=== PATIENT | male | born 1990 | race Caucasian/White ===

== ENCOUNTER 2023-09-18 18:51 | Emergency (ER) | payer BC, SELFPAY ==
[2023-09-18 19:04] VITALS: BP 127/81; RESP 16; TEMP 37.1; O2SAT 97; BMI 44.9
--- NOTE | 2023-09-18 19:36 | ED_ITS ---
HPI - General Adult General Chief complaint: Ear/Nose/Throat Problem Stated complaint: fever, sore throat, Time Seen by Provider: 09/18/23 19:30 History of Present Illness HPI narrative: This 32-year-old male comes in reporting sore throat, fever, and generalized aches and pains that began yesterday. He does not report any cough or nasal congestion. He arrives here with normal vital signs. Related Data Previous Rx's Medication Instructions Recorded acetaminophen 300 mg-codeine 30 mg 1 tab PO Q6H PRN pain #15 tabs 09/18/23 tablet Allergies Allergy/AdvReac Type Severity Reaction Status Date / Time Penicillins AdvReac Severe Anaphylaxis Verified 09/18/23 19:08 contrast dye AdvReac Severe Rash Uncoded 09/18/23 19:08 Review of Systems Status of ROS: Reports: 10 or more systems reviewed and unremarkable except as noted in History and below Narrative: Constitutional: No weight gain or loss. He reports fevers. Eyes: No discharge. No vision changes. HENT: No congestion, no ear pain. He reports a sore throat. Cardiovascular: No chest pain, no palpitations. Respiratory: No shortness of breath, no wheezes, no cough. Gastrointestinal: No abdominal pain, no vomiting, no diarrhea. Genitourinary: No dysuria, no hematuria. Musculoskeletal: Normal range of motion. Skin: No rashes, no pruritis. Neurological: No dizziness, weakness, sensory change, speech change. Endo/Heme/Allergies: No bruising or bleeding. No polydipsia. Pysch: no suicidality, no anxiety, no insomnia. All other systems reviewed and are negative. Exam Narrative: Exam Narrative: Constitutional: Well-developed, well-nourished, no acute distress. HEENT: Normocephalic, atraumatic. Oropharynx has erythema with small amount of exudate. Neck: Normal range of motion. Nontender. Supple. Heart: Regular. No murmurs. Normal rate. Intact distal pulses. Lungs: Clear to auscultation. No chest discomfort. No wheezes, rhonchi, or rales. Abdomen: Normal bowel sounds. Nontender. No rebound tenderness. Genitalia: Deferred. Back: No midline tenderness. Normal range of motion. Extremities: Normal range of motion. No injury. Skin: Intact. No rash. Warm. No erythema or pallor. Neurologic: No altered sensation. No weakness. Alert and oriented. Psychiatric: No suicidality. No anxiety or depression. No insomnia. Nursing notes and vitals signs are reviewed. Const: Vital Signs, click to edit/add: Vital Signs - 24 hr 09/18/23 19:04 Temperature 98.7 F Respiratory Rate 16 Blood Pressure [Le ft Upper Arm] 127/81 Pulse Oximetry 97 Oxygen Delivery Me thod Room Air Course Vital Signs Vital signs: Initial Vital Signs Temperature 98.7 F 09/18/23 19:04 Temperature Source Temporal Artery Scan 09/18/23 19:04 Respiratory Rate 16 09/18/23 19:04 Blood Pressure 127/81 09/18/23 19:04 Blood Pressure Mean 96 09/18/23 19:04 Blood Pressure Position Sitting 09/18/23 19:04 Pulse Oximetry 97 09/18/23 19:04 Oxygen Delivery Method Room Air 09/18/23 19:04 Vital Signs Temperature 98.7 F 09/18/23 19:04 Respiratory Rate 16 09/18/23 19:04 Blood Pressure 127/81 09/18/23 19:04 Pulse Oximetry 97 09/18/23 19:04 Oxygen Delivery Method Room Air 09/18/23 19:04 Temperature 98.7 F 09/18/23 19:04 Respiratory Rate 16 09/18/23 19:04 Blood Pressure 127/81 09/18/23 19:04 Pulse Oximetry 97 09/18/23 19:04 Oxygen Delivery Method Room Air 09/18/23 19:04 Medical Decision Making MDM Narrative Medical decision making narrative: This patient comes in reporting sore throat and fever that began yesterday. Nasal pharyngeal swab an oral swab are negative for COVID, influenza, RSV, and strep. This patient has normal vital signs on arrival here. He did receive an oral dose of dexamethasone 10 mg. He is okay to be discharged home. I advised him to return if becoming short of breath or worsening symptoms happen. He did receive a prescription for few tablets of Tylenol 3 for additional symptomatic relief. Lab Data Labs: Lab Results 09/18/23 Range/Units 19:10 SARS-CoV-2 (PCR) Negative SARS-CoV-2 (Negative) Influenza Type A (PCR) Negative PCR FLU A (Negative) Influenza Type B (PCR) Negative PCR FLU B (Negative) RSV (PCR) Negative PCR RSV (Negative) Group A Strep DNA NOT DETECTED (Not Detectd) Discharge Plan Discharge Clinical Impression: URI (upper respiratory infection) Patient Disposition: Home, Self-Care Condition: Stable Additional Instructions: Take medication as needed and indicated. Follow up with MD or return if worsening. Prescriptions: New acetaminophen-codeine 300-30 mg tablet 1 tab PO Q6H PRN (Reason: pain) Qty: 15 0RF Follow Up/Referrals: Fartun Melendez MD [Primary Care Provider] - Stand Alone Forms: [employer] Info Instructions
--- OUTSIDE RECORDS SUMMARY | 2023-09-18 19:48 | XMS_ITS | Clinical Summary ---
Author Name Unknown Organization [facility] Address [place], [place] [address] Care Team Providers Care Environmental Department Manager Name Role Phone Fartun Melendez MD Primary Care Provider Allergies Active Allergy Reactions Criticality Noted Date Comments Diatrizoate Allergen Hives 09/27/2020 Delayed response-- full body rash, may be due to IV contrast. Recommend premedication Penicillins Shortness Of Breath,Edema 05/18/2018 Medications Medication Sig Dispensed Refills Start Date End Date Status almotriptan (AXERT) 12.5 mg tabletIndications:Mi graine syndrome Take 1 tablet by mouth 2 times daily if needed for Migraine. Give at minimum 2hrs apart. Max Dose: 25mg per 24hrs. 9 tablet 1 10/17/2019 Active ammonium lactate 12% topical (LACHYDRIN) 12 % lotionIndications:Cr acked skin on feet Apply topically to affected area(s) 2 times daily. 1 Bottle 0 08/01/2020 Active benzonatate (Tessalon Perles) 100 mg capsuleIndications:I nfluenza-like illness,Cough, unspecified type Take 1 Capsule (100 mg) by mouth 3 times daily if needed for Cough. 30 Capsule 0 08/13/2022 Active albuterol HFA (ProAir HFA) 90 mcg/actuation inhalerIndications:I nfluenza-like illness,Cough, unspecified type Inhale 1-2 Puffs by mouth every 6 hours if needed for Shortness of Breath 1st choice. 1 Each 0 08/13/2022 Active Active Problems No known active problems Encounters Date Type Department Care Team Description 09/18/2023 Nurse Triage [facility] [address] [place] [address] Fartun Melendez MD Fever; Throat Pain/problem 07/29/2023 2:00 PM [facility] Procedure Only [facility] [address] [place] [address] Deedee Murillo MD Vasectomy 07/29/2023 Travel 07/01/2023 1:30 PM [facility] [facility] Office Visit [facility] [address] [place] [address] Deedee Murillo MD Consult (vasectomy) 07/01/2023 Travel from Last 3 Months Immunizations Name Administration Dates Next Due AMB Influenza, IIV4 PF (=>6 mos Flulaval,Fluzone Fluarix)(Flu Clinic Only) 05/16/2020,05/31/2019 Influenza, IIV4 05/18/2018 Tdap 05/18/2018 Family History Medical History Relation Name Comments Good Health Father Good Health Mother Diabetes Paternal Grandmother Cancer No Family History Heart Disease No Family History Relation Name Status Comments Father Alive Mother Alive Paternal Grandmother Social History Tobacco Use Types Packs/Day Years Used Date Smoking Tobacco: Never Smokeless Tobacco: Never Tobacco Cessation:Counseling Given: Yes Alcohol Use Standard Drinks/Week Comments Yes 0 (1 standard drink = 0.6 oz pur e alcohol) very rarely PHQ-2 Answer Date Recorded PHQ-2 TOTAL SCORE 0 08/01/2020 Social Connections Answer Date Recorded Frequency of Communication with Friends and Fami ly Not on file 08/04/2021 Financial Resource Strain Answer Date R ecorded Difficulty of Paying Living Expenses Not on file 08/04/2021 Difficulty of Paying Living Expenses Not on file 08/04/2021 Sex and Gender Information Value Date Recorded Sex Assigned at Not on file Gender Identity Not on file Sexual Orientation Not on file Obstetrics History Last Filed Vital Signs Vital Sign Reading Time Taken Comments Blood Pressure 132/78 07/29/2023 1:56 PM [employer] Pulse 72 07/29/2023 1:56 PM [employer] Temperature 36.8 ??C (98.3 ??F) 08/13/2022 2:43 PM CS T Respiratory Rate - - Oxygen Saturation 99% 07/29/2023 1:56 PM WO[employer]ER Inhaled Oxygen Concentration - - Weight 154 kg (339 lb 9.6 oz) 07/29/2023 1:56 PM WO[employer]ER with shoes Height 187.2 cm (6' 1.7) 08/01/2020 7:56 AM WOOL CLASSER Body Mass Index 43.96 08/01/2020 7:56 AM WOOL CLASSER Plan of Treatment Health Maintenance Due Date Last Done Comments COVID-19 vaccine series (#1) 05/20/1990 HIV for age 15-65 2004 Hepatitis C screening for ag e 18-79 11/19/2007 BMI (ht and wt on same day) for age 18+ 08/01/2021 08/01/2020, 05/18/2018 Depression screening for age 12+ 08/01/2021 08/01/2020, 01/14/2020, 05/18/2018 Influenza for age 9-49 04/04/2023 0, 05/31/2019, 05/18/2018 Tetanus booster 05/18/2028 05/18/2018 Tdap Completed 05/18/2018 Pneumococcal series for age 6-64 Aged Out No longer eligible b ased on patient's age to complete this topic Procedures Procedure Name Priority Date/Time Associated Diagnosis Comments PATH TISSUE EXAM Routine 07/29/2023 2:15 PM [employer] Encounter for vasectomy from Last 3 Months Results * PATH TISSUE EXAM (07/29/2023 2:15 PM WO[employer] CLASSER) Case Report Pathology Report ?Case: [id number] ? Authorizing Provider: ??Deedee Murillo MD ??Collected: ? 07/29/2023 1415 ? Ordering Location: ? [facility] ?? Received: ?07/29/2023 1503 ? Clinic ? Pathologist: ? Liana Lopez MD ? Specimens: ?? A) - Right Vas Deferens ? B) - Left Vas Deferens ? 07/30/2023 3:33 PM [facility] Final Diagnosis A) VAS DEFERENS, RIGHT, VASECTOMY: Complete luminal cross-section of vas deferens identified B) VAS DEFERENS, LEFT, VASECTOMY: Complete luminal cross-section of vas deferens identified 07/30/2023 3:33 PM [facility] Clinical Information Permanent sterilization 07/30/2023 3:33 PM [facility] Gross Description A) Received in formalin, labeled with the patient's name and right vas deferens, is a 1.9 cm in length by 0.2 cm in diameter cylindrical segment of vas deferens. ??The specimen is entirely submitted in one cassette for sectioning by histology. B) Received in formalin, labeled with the patient's name and left vas deferens, is a 1.6 cm in length by 0.2 cm in diameter cylindrical segment of vas deferens. ??The specimen is entirely submitted in one cassette for sectioning by histology. EKW 07/29/2023 07/30/2023 3:33 PM WO[facility]ER [facility] Microscopic Description The final diagnosis is based on microscopic examination of appropriate sections of all specimens. 07/30/2023 3:33 PM [facility] Additional Information Interpreted at [facility] - [address], [place] [address] 07/30/2023 3:33 PM WO[facility] CLASSER [facility] Other (Right Vas Deferens) Non-Blood / Unknown 07/29/2023 2:15 PM WOOL CLASSER 07/29/2023 3:03 PM WO[employer] CLASSER Specimen (specimen) (Left Vas Deferens) Non-Blood / Unknown 07/29/2023 2:25 PM WO[employer] CLASSER 07/29/2023 3:03 PM WO[employer] CLASSER Deedee Murillo MD PATHOLOGY/CYTOLO GY [facility] [address] [place] [address], from Last 3 Months Care Teams Environmental Department Manager Relationship Specialty Start Date End Date Fartun Melendez MD [address] [place] [address] PCP - General Family Practice 08/01/20
[2023-09-18 19:57] LABS: PCR FLU A Negative PCR FLU A (Negative); PCR FLU B Negative PCR FLU B (Negative); PCR RSV Negative PCR RSV (Negative); SARS PCR* Negative SARS-CoV-2 (Negative)
[2023-09-18 20:28] LABS: Strep A DNA Probe* NOT DETECTED (Not Detectd)
[2023-09-18] MEDS: dexAMETHasone 10 MG/ML inj PO (20:46)
== END 2023-09-18 20:48 | disposition home or self-care (01) ==
PROVIDERS: Emergency Provider Emergency Medicine Emergency Medical Services; PCP Family Medicine
DX: J06.9 Acute upper respiratory infection, unspecified (principal)
CPT/HCPCS: 87631; 87651; 99283; 99284; J1100